=== PATIENT | female | born 1975 | race Caucasian/White ===

== ENCOUNTER 2017-05-01 18:10 | Emergency (ER) | payer MEDICAID ==
[~2017-05-01] VITALS: Ht 160 cm; Wt 90.3 kg
[2017-05-01 18:22] VITALS: BP 175/106
--- NOTE | 2017-05-01 19:42 | NUR ---
patient to er bed 6
--- NOTE | 2017-05-01 19:47 | NUR ---
42Y/F PATIENT PRESENTS TO ED WITH C/O LT. LEG PAIN X 1 DAY . PT STATES PAIN STARTED THIS MORNING, NO TRAUMA OR INJURY; SKIN IS PINK/WARM/DRY; AAOX4 WITH EVEN AND STEADY GAIT; LUNGS CLEAR BL; HR EVEN AND REGULAR; PT DENIES ANY FEVER, CP, SOB, OR COUGH AT THIS TIME; PATIENT STATES PAIN OF 9/10 AT THIS TIME; VSS; PATIENT POSITIONED FOR COMFORT; HOB ELEVATED; BEDRAILS UP X2; BED DOWN. ER MD MADE AWARE OF PT STATUS.
[2017-05-01] MEDS ORDERED: KETOROLAC 30 MG/ML VIAL IM ONE (20:15)
--- NOTE | 2017-05-01 20:30 | NUR ---
Patient being evaluated by DR. BENITEZ at bedside.
[2017-05-01 20:51] LABS: BASOPHILS # (AUTO) 0.3 K/uL (0.00-0.22); BASOPHILS % (AUTO) 2.9 % (0.0-2.0); EOSINOPHILS # (AUTO) 0.2 K/uL (0-0.4); EOSINOPHILS % (AUTO) 2.4 % (0.0-4.0); HEMATOCRIT 38.3 % (36-48); HEMOGLOBIN 13.1 g/dL (12.0-16.0); LYMPHOCYTES # (AUTO) 3.1 K/uL (2.5-16.5); LYMPHOCYTES % (AUTO) 30.9 % (20.5-51.1); MEAN CORPUSCULAR HEMOGLOBIN 30 pg (27-31); MEAN CORPUSCULAR HGB CONC 34 g/dL (33-37); MEAN CORPUSCULAR VOLUME 89 fL (80-94); MONOCYTES # (AUTO) 0.6 K/uL (0.8-1.0); MONOCYTES % (AUTO) 6.1 % (1.7-9.3); NEUTROPHILS # (AUTO) 5.8 K/uL (1.8-7.7); NEUTROPHILS % (AUTO) 57.7 % (42.2-75.2); PLATELET COUNT (AUTO) 161 K/uL (140-450); RED CELL DISTRIBUTION WIDTH 13.3 % (11.6-13.7)
[2017-05-01 21:01] LABS: ANION GAP 11.2 (8-16); CALCIUM 8.6 mg/dL (8.5-10.1); CREATININE 0.7 mg/dL (0.6-1.3); POTASSIUM 4.2 mmol/L (3.5-5.1)
[2017-05-01 21:07] LABS: ALBUMIN 3.3 g/dL (3.4-5.0); TOTAL BILIRUBIN 0.2 mg/dL (0.0-1.0); TOTAL PROTEIN, SERUM 7.2 g/dL (6.4-8.2)
[2017-05-01] MEDS ORDERED: NACL 0.9% 1,000 ML IV ONE (21:50)
--- NOTE | 2017-05-01 22:45 | NUR ---
TAKE PT. TO CT
--- NOTE | 2017-05-01 23:15 | NUR ---
PT. BACK FROM CT.
--- NOTE | 2017-05-01 23:29 | NUR ---
Patient appears to be resting comfortably in bed. Vital Signs within normal limits. Respirations even and unlabored.
--- NOTE | 2017-05-01 23:35 | NUR ---
Marlen araiza in EDM - 05/02/17 at 0031 by MEDRJJ Patient noted to have existing wounds upon arrival to ER. Photos taken of wound and placed in chart. Wound covered with dressing. Physician informed.
[2017-05-02 01:13] VITALS: BP 133/75
--- NOTE | 2017-05-02 01:15 | NUR ---
Patient discharged with v/s stable. Written and verbal after care instructions given and explained. Patient alert, oriented and verbalized understanding of instructions. Ambulatory with steady gait. All questions addressed prior to discharge. ID band removed. Patient advised to follow up with PMD. Rx of CYCLOBENZAPRINE 10MG Q8HR, IBUPROFEN 800MG TID/PRN given. Patient educated on indication of medication including possible reaction and side effects. Opportunity to ask questions provided and answered.
== END 2017-05-02 01:14 | disposition home or self-care (01) ==
LOC: MED 18:10
CPT/HCPCS: 36415; 71275; 80053; 81025; 85025; 85379; 93971; 96360; 96372; 99285; J1885; J7030; Q0092; Q9967

== ENCOUNTER 2017-11-23 19:24 | Emergency (ER) | payer MEDICAID ==
[~2017-11-23] VITALS: Ht 162.6 cm; Wt 96.7 kg
[2017-11-23 19:32] VITALS: BP 147/84
--- NOTE | 2017-11-23 20:00 | NUR ---
PT ITALIAN SPEAKING, BROUGHT TO ED BY DAUGHTER FOR LEFT SIDED PRESSURE HEADACHE AND CHEST PAIN EARLIER IN THE DAY. PT DENIES CHEST PAIN AT THIS TIME. PT DENIES FALLES OR HEAD TRAUMA. PT STATES HAVING DIZZINESS, AND BLURRED VISION WITH ONSET OF HEADACHE. CARDENAS PAIN 04/12. A&OX4. ABLE TO COMUNICATED NEEDS CLEARLY. 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 SPEECH NORMAL AND CLEAR. MD AWARE. CONTINUE TO MONITOR.
[2017-11-23] MEDS ORDERED: KETOROLAC 60 MG/2 ML VIAL IM ONE (20:45)
[2017-11-23] MEDS ORDERED: LORazepam 2 MG/ML VIAL IM ONE (20:45)
[2017-11-23 21:30] VITALS: BP 130/70
--- NOTE | 2017-11-23 21:33 | NUR ---
Patient discharged with v/s stable. Written and verbal after care instructions given and explained. Pt waiting in lobby awaiting daughter p/u.Patient alert, oriented and verbalized understanding of instructions. Ambulatory with steady gait. All questions addressed prior to discharge. ID band removed. Patient advised to follow up with PMD. Rx of MOTRIN given. Patient educated on indication of medication including possible reaction and side effects. Opportunity to ask questions provided and answered.
== END 2017-11-23 21:33 | disposition home or self-care (01) ==
LOC: MED 19:24
DX: R51 Headache (principal); I10 Essential (primary) hypertension; M79.602 Pain in left arm; M79.605 Pain in left leg; J45.909 Unspecified asthma, uncomplicated
CPT/HCPCS: 81002; 81025; 96372; 99284; J1885; J2060

== ENCOUNTER 2018-08-02 18:48 | Emergency (ER) | payer MEDICAID ==
[~2018-08-02] VITALS: Ht 160 cm; Wt 95.3 kg
[2018-08-02 18:57] VITALS: BP 146/90
[2018-08-02] MEDS ORDERED: IBUPROFEN 600 MG TAB PO ONE (20:45)
[2018-08-02 21:31] VITALS: BP 132/78
== END 2018-08-02 21:31 | disposition home or self-care (01) ==
LOC: MED 18:48
DX: S83.91XA Sprain of unspecified site of right knee, initial encounter (principal); J45.909 Unspecified asthma, uncomplicated; I10 Essential (primary) hypertension; X58.XXXA Exposure to other specified factors, initial encounter; Y93.89 Activity, other specified; Y92.89 Other specified places as the place of occurrence of the external cause; Y99.8 Other external cause status
CPT/HCPCS: 73562; 99284; Q0092

== ENCOUNTER 2019-02-12 15:41 | Emergency (ER) | payer MEDICAID ==
[~2019-02-12] VITALS: Ht 160 cm; Wt 90.7 kg
[2019-02-12 15:46] VITALS: BP 142/78
--- NOTE | 2019-02-12 16:06 | NUR ---
PT AMBULATED TO BED 08.
--- NOTE | 2019-02-12 16:12 | NUR ---
PT AT RADIALOGY AT THIS TIME.
--- NOTE | 2019-02-12 16:21 | NUR ---
PT BIB SELF FOR RT KNEE PAIN. PT REPORTS BONE ON BONE PAIN AT 9/10. PT REPORTS HAVING CHRONIC KNEE PAIN X2 YEARS, BUT RECENTLY HAS BECOME UNBEARABLE AND CURRENT PAIN MEDICATION IS NOT HELPING. SWELLING PRESENT ON MEDIAL RT KNEE, NO REDNESS, NO DEFORMITY, +CMS. VSS. ER TO SEE PT. MEDHX:HTN
--- NOTE | 2019-02-12 17:23 | NUR ---
PT RESTING IN BED. PT REPORTS KNEE PAIN AT 9/10. VSS. ER MADE AWARE
[2019-02-12] MEDS ORDERED: KETOROLAC 60 MG/2 ML VIAL IM ONE (17:40)
--- NOTE | 2019-02-12 20:10 | NUR ---
Patient discharged with v/s stable. Pateint acting appropriatly, patient states pain 2/10 at this time; patient states she is ready to go home. Written and verbal after care instructions given and explained. Patient alert, oriented and verbalized understanding of instructions. Ambulatory with steady gait. All questions addressed prior to discharge. ID band removed. Patient advised to follow up with PMD. Rx of given. Patient educated on indication of medication including possible reaction and side effects. Opportunity to ask questions provided and answered.
[2019-02-12 20:18] VITALS: BP 140/81
== END 2019-02-12 20:10 | disposition home or self-care (01) ==
LOC: MED 15:41
DX: M17.11 Unilateral primary osteoarthritis, right knee (principal); J45.909 Unspecified asthma, uncomplicated; I10 Essential (primary) hypertension
CPT/HCPCS: 73562; 96372; 99283; J1885; 29505

== ENCOUNTER 2019-07-15 22:25 | Emergency (ER) | payer SELFPAY ==
[~2019-07-15] VITALS: Ht 160 cm; Wt 93.0 kg
[2019-07-15 22:44] VITALS: BP 163/91
--- NOTE | 2019-07-15 22:50 | NUR ---
PT AMBULATED SELF TO BED #11
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
--- NOTE | 2019-07-16 01:01 | NUR ---
PT LAYING IN BED, RR EVEN AND UNLABORED. REPORTS TOLERABLE 8/10 POSTERIOR NECK, BL SHOULDER AND LOWER BACK PAIN. VSS. ALL NEEDS MET.
[2019-07-16 02:36] VITALS: BP 131/69
--- NOTE | 2019-07-16 02:36 | NUR ---
PT DISCHARGED WITH PAPERWORK. NO RX PROVIDED. EDUCATED PT REGARDING D/C DIAGNOSIS AND INSTRUCTIONS. PT VERBALIZED UNDERSTANDING OF TEACHING. TOLD PT TO FOLLOW UP WITH PCP AND WHEN TO RETURN TO ED. PT VSS. ALL QUESTIONS ANSWERED.
== END 2019-07-16 02:36 | disposition home or self-care (01) ==
LOC: MED 22:25
DX: M54.5 Low back pain (principal); M54.2 Cervicalgia; M25.511 Pain in right shoulder; M25.512 Pain in left shoulder; J45.909 Unspecified asthma, uncomplicated; I10 Essential (primary) hypertension; V89.2XXA Person injured in unspecified motor-vehicle accident, traffic, initial encounter; Y93.89 Activity, other specified; Y92.89 Other specified places as the place of occurrence of the external cause; Y99.8 Other external cause status
CPT/HCPCS: 99283

== ENCOUNTER 2019-09-11 03:43 | Emergency (ER) | payer MEDICAID ==
[~2019-09-11] VITALS: Ht 160 cm; Wt 90.7 kg
[2019-09-11 03:45] VITALS: BP 135/77
--- NOTE | 2019-09-11 03:45 | NUR ---
TO BED # 12 AMBULATORY
--- NOTE | 2019-09-11 04:04 | NUR ---
44 Y/O FEMALE PRESENTS TO ED, C/O RIGHT GREAT TOE PAIN 07/13. PT HAS INGROWN TOENAIL THAT STARTED GROWING 1 WEEK AGO; STATES GOING TO PEDICURE AND FELT PAIN. PT STATES PAIN RADIATES FROM TOE TO KNEE. TOOK IBUPROFEN 800MG YESTERDAY; INEFFECTIVE. NO BLEEDING OR DISCHARGE ON TOE. PT ABLE TO AMBULATE WITH SLOW STEADY GAIT BUT WITH PAIN. PT STABLE. ERMD AWARE. WILL CONTINUE TO MONITOR.
[2019-09-11] MEDS ORDERED: KETOROLAC 30 MG/ML VIAL IM ONE (04:20)
[2019-09-11 04:35] VITALS: BP 135/77
--- NOTE | 2019-09-11 04:35 | NUR ---
PT DISCHARGED WITH PAPERWORK. RX TIMOTHY EDUARDO. EDUCATED PT REGARDING MEDICATIONS AND S/E. EDUCATED PT REGARDING D/C DIAGNOSIS AND INSTRUCTIONS. PT VERBALIZED UNDERSTANDING OF TEACHING. TOLD PT TO FOLLOW UP WITH PCP AND WHEN TO RETURN TO ED. PT VSS. ALL QUESTIONS ANSWERED.
== END 2019-09-11 04:35 | disposition home or self-care (01) ==
LOC: MED 03:43
DX: L60.0 Ingrowing nail (principal); J45.909 Unspecified asthma, uncomplicated; I10 Essential (primary) hypertension
CPT/HCPCS: 96372; 99283; J1885

== ENCOUNTER 2019-10-29 00:07 | Emergency (ER) | payer MEDICAID ==
[~2019-10-29] VITALS: Ht 160 cm; Wt 93.9 kg
[2019-10-29 00:07] VITALS: BP 140/88
--- NOTE | 2019-10-29 00:10 | NUR ---
TO LOBBY A/W BED AMBULATORY
--- NOTE | 2019-10-29 00:35 | NUR ---
PT AMBULATED TO BED 4.
--- NOTE | 2019-10-29 00:35 | NUR ---
44 Y/O FEMALE BIB SON C/O COUGH FOR 3 WEEKS, H/A, EYE PAIN, ITCHINESS STARTED TODAY. NOTED REDNESS/DRYNESS AND PATIENT IS UNABLE TO OPEN RIGHT; DENIES N/V/D. COUGH +PHLEGM; PATIENT STATES, " IT HURTS TO BREATHE". LUNG SOUNDS CLEAR/DIMINISHED ANTERIOR/POSTERIOR BILATERALLY; 98% ON RA. BOWEL SOUNDS ON ALL FOUR QUADRANTS. PAIN IS AM 8/10 GENERALIZED PAIN. ERMD MADE AWARE OF STATUS. SIDE RAILSX1. PMH:ASTHMA; HTN RX:DENIES NKDA
--- NOTE | 2019-10-29 01:33 | NUR ---
DR. FORTE EVALUATING PATIENT AT BEDSIDE.
[2019-10-29 01:45] VITALS: BP 135/78
--- NOTE | 2019-10-29 01:45 | NUR ---
Patient discharged with v/s stable. Written and verbal after care instructions given and explained. Patient alert, oriented and verbalized understanding of instructions. Ambulatory with steady gait. All questions addressed prior to discharge. ID band removed. Patient advised to follow up with PMD. Rx of TESSALON PERLES; AUGMENTIN; SULFACETAMIDE SODIUM OPTHALAMIC DROPS. given. Patient educated on indication of medication including possible reaction and side effects. Opportunity to ask questions provided and answered. DISCHARGED BY DR. FORTE.
== END 2019-10-29 01:45 | disposition home or self-care (01) ==
LOC: MED 00:07
DX: J20.9 Acute bronchitis, unspecified (principal); H10.9 Unspecified conjunctivitis; J45.909 Unspecified asthma, uncomplicated; I10 Essential (primary) hypertension; Z98.51 Tubal ligation status
CPT/HCPCS: 99283

== ENCOUNTER 2020-06-23 20:08 | Emergency (ER) | payer MEDICAID ==
[~2020-06-23] VITALS: Ht 160 cm; Wt 100.2 kg
[2020-06-23 20:12] VITALS: BP 179/100
--- NOTE | 2020-06-23 20:23 | NUR ---
PT AMBULATED TO ER BED 04
--- NOTE | 2020-06-23 20:38 | NUR ---
PT C/O RIGHT EYE PAIN AND PRESSURE X 3 WEEKS ON AND OFF HOWEVER IN THE LAST WEEK IT HAS BEEN CONSTANT. SHE ALSO HAS PAIN IN THE BACK OF HER NECK WHICH RADIATES DOWN HER RIGHT ARM. THE PAIN IS THROBBING IN NECK AND ARM. 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 DOES C/O OF SEEING BLACKS SPOTS ON AND OFF IN HER VISION TO RIGHT EYE. NO N/V, NO SOB, NO DIZZINESS. BED IN LOWEST POSITION AND SIDERAIL UP X 1. NKA ASTHMA, HTN
[2020-06-23] MEDS ORDERED: KETOROLAC 60 MG/2 ML VIAL IM ONE (20:40)
[2020-06-23 21:21] VITALS: BP 158/89
--- NOTE | 2020-06-23 21:22 | NUR ---
Patient discharged with v/s stable. Written and verbal after care instructions given and explained. Patient alert, oriented and verbalized understanding of instructions. Ambulatory with steady gait. All questions addressed prior to discharge. ID band removed. Patient advised to follow up with PMD. Rx of MOTRIN AND NORCO given. Patient educated on indication of medication including possible reaction and side effects. Opportunity to ask questions provided and answered.
== END 2020-06-23 21:22 | disposition home or self-care (01) ==
LOC: MED 20:08
DX: R51 Headache (principal); H57.11 Ocular pain, right eye; J45.909 Unspecified asthma, uncomplicated; I10 Essential (primary) hypertension; Z98.890 Other specified postprocedural states
CPT/HCPCS: 81002; 81025; 96372; 99283; J1885

== ENCOUNTER 2021-03-29 22:42 | Emergency (ER) | payer MEDICAID ==
[~2021-03-29] VITALS: Ht 152.4 cm; Wt 101.2 kg
[2021-03-29 22:46] VITALS: BP 155/87
--- NOTE | 2021-03-29 23:00 | NUR ---
TO BED 5 FROM TRIAGE
--- NOTE | 2021-03-29 23:00 | NUR ---
PT. IS A 46 Y/O WOMAN WHO CAME IN WITH C/O OF RIGHT LEG PAIN AND LEFT ARM/SHOULDER PAIN THAT STARTED LAST WEEK. SHE STATES THAT IT IS A 9/10 ON THE PAIN SCALE. SKIN IS PINK/WARM/DRY; AAOX4 WITH EVEN AND STEADY GAIT; HR EVEN AND REGULAR; PT DENIES ANY FEVER, CP, SOB, OR COUGH AT THIS TIME; VSS; PATIENT POSITIONED FOR COMFORT; HOB ELEVATED; BEDRAILS UP X2; BED DOWN. ER MD MADE AWARE OF PT STATUS. PMH: HYPERTENSION ALLERGIES: NKA
--- NOTE | 2021-03-29 23:31 | NUR ---
Patient being evaluated by physician at bedside.
[2021-03-30] MEDS: HYDROcodone/APAP 5/325 MG 1 TAB TAB PO ONE (00:13)
[2021-03-30] MEDS ORDERED: ACET-9525 PO (01:24)
[2021-03-30 01:50] VITALS: BP 155/87
--- NOTE | 2021-03-30 01:50 | NUR ---
Patient discharged with v/s stable. Written and verbal after care instructions given and explained. Patient alert, oriented and verbalized understanding of instructions. Ambulatory with steady gait. All questions addressed prior to discharge. ID band removed. Patient advised to follow up with PMD. Rx of HYDROCODONE/ACETAMINOPHEN given. Patient educated on indication of medication including possible reaction and side effects. Opportunity to ask questions provided and answered.
== END 2021-03-30 01:50 | disposition home or self-care (01) ==
LOC: MED 22:42
DX: M17.12 Unilateral primary osteoarthritis, left knee (principal); M71.22 Synovial cyst of popliteal space [Baker], left knee; J45.909 Unspecified asthma, uncomplicated; I10 Essential (primary) hypertension; Z79.899 Other long term (current) drug therapy
CPT/HCPCS: 73562; 81002; 81025; 93971; 99284

== ENCOUNTER 2021-07-28 01:30 | Emergency (ER) | payer MEDICAID ==
[~2021-07-28] VITALS: Ht 160 cm; Wt 92.1 kg
[~2021-07-28 01:30] MED LIST: ACET-9525 PO
[2021-07-28 01:51] VITALS: BP 136/87
--- NOTE | 2021-07-28 01:51 | NUR ---
TO BED AMBULATORY
[2021-07-28] MEDS ORDERED: ACETAMINOPHEN 325 MG TAB PO ONE (02:25)
[2021-07-28] MEDS ORDERED: KETOROLAC 15 MG/ML VIAL IM ONE (02:25)
--- NOTE | 2021-07-28 03:18 | NUR ---
XRAY AT BEDSIDE
[2021-07-28] MEDS ORDERED: IBUP-2213 PO (04:14)
[2021-07-28 04:38] VITALS: BP 126/76
== END 2021-07-28 04:35 | disposition home or self-care (01) ==
LOC: MED 01:30
DX: S30.0XXA Contusion of lower back and pelvis, initial encounter (principal); V89.2XXA Person injured in unspecified motor-vehicle accident, traffic, initial encounter; Y93.89 Activity, other specified; Y92.89 Other specified places as the place of occurrence of the external cause; Y99.8 Other external cause status
CPT/HCPCS: 72170; 81002; 81025; 96372; 99283; J1885; Q0092

== ENCOUNTER 2021-09-06 20:55 | Emergency (ER) | payer MEDICAID, OTHER ==
[~2021-09-06] VITALS: Ht 160 cm; Wt 93.0 kg
[~2021-09-06 20:55] MED LIST changes: +IBUP-2213 PO
[2021-09-06 21:19] VITALS: BP 128/78
--- NOTE | 2021-09-06 21:28 | NUR ---
PATIENT AMBULATED TO THE BATHROOM FOR URINE COLLECTION, AND WILL HEAD TO THE LOBBY.
[2021-09-06 21:41] LABS: BASOPHILS % (AUTO) 0.4 % (0.0-2.0); EOSINOPHILS # (AUTO) 0.3 K/uL (0-0.4); EOSINOPHILS % (AUTO) 3.6 % (0.0-4.0); HEMATOCRIT 43.8 % (36-48); HEMOGLOBIN 14.9 g/dL (12.0-16.0); LYMPHOCYTES # (AUTO) 1.1 K/uL (2.5-16.5); MEAN CORPUSCULAR HEMOGLOBIN 30 pg (27-31); MEAN CORPUSCULAR HGB CONC 34 g/dL (33-37); MEAN CORPUSCULAR VOLUME 89.3 fL (80-94); MONOCYTES # (AUTO) 0.4 K/uL (0.8-1.0); MONOCYTES % (AUTO) 4.1 % (1.7-9.3); NEUTROPHILS % (AUTO) 79.9 % (42.2-75.2); PLATELET COUNT (AUTO) 200 K/uL (140-450); RED CELL DISTRIBUTION WIDTH 13.7 % (11.6-13.7); WHITE BLOOD COUNT (AUTO) 8.7 K/uL (4.8-10.8)
[2021-09-06 21:44] LABS: APPEARANCE,URINE CLEAR (CLEAR); BILIRUBIN,URINE NEGATIVE (NEGATIVE); BLOOD, URINE 1+ (NEGATIVE); COLOR,URINE YELLOW (YELLOW); LEUKOCYTE ESTERASE ,URINE NEGATIVE (NEGATIVE); NITRITE, URINE NEGATIVE (NEGATIVE); UGLUCOSE NEGATIVE (NEGATIVE)
[2021-09-06 22:00] LABS: WBC,URINE NONE SEEN /HPF (0-5); YEAST,URINE Rare /HPF (None Seen)
[2021-09-06 22:01] LABS: ALBUMIN 3.8 g/dL (3.4-5.0); ANION GAP 14.8 (8-16); CARBON DIOXIDE 26.4 mmol/L (21-32); CREATININE 0.6 mg/dL (0.6-1.3); POTASSIUM 4.2 mmol/L (3.5-5.1); TOTAL BILIRUBIN 0.5 mg/dL (0.0-1.0)
--- NOTE | 2021-09-06 22:43 | NUR ---
PT AMB TO BED 8
[2021-09-06] MEDS ORDERED: DICYCLOMINE HCL LIQUID 20 MG, ALUMINUM HYD/MAG/SIMETHICONE 30 ML, LIDOCAINE VISCOUS 2% ... PO ONE ×3 (23:15)
[2021-09-06] MEDS ORDERED: ONDANSETRON 4 MG ODT PO ONE (23:15)
--- NOTE | 2021-09-06 23:16 | NUR ---
ERMD EVALUATING PT AT BEDSIDE.
[2021-09-06] MEDS ORDERED: DICYCLOMINE HCL LIQUID 10 MG/5 ML UDC ONE ×2 (23:38→23:41)
[2021-09-06] MEDS ORDERED: ALUMINUM HYD/MAG/SIMETHICONE 30 ML UDC ONE ×2 (23:38→23:41)
[2021-09-07] MEDS ORDERED: ONDA-188 SL (00:34)
[2021-09-07] MEDS ORDERED: IMO2 PO (00:34)
[2021-09-07 00:50] VITALS: BP 128/78
--- NOTE | 2021-09-07 00:50 | NUR ---
Patient discharged with v/s stable. Written and verbal after care instructions given and explained. Patient alert, oriented and verbalized understanding of instructions. Ambulatory with steady gait. All questions addressed prior to discharge. ID band removed. Patient advised to follow up with PMD. Rx of LOPERAMIDE,ONDANSETRON given. Patient educated on indication of medication including possible reaction and side effects. Opportunity to ask questions provided and answered.
--- NOTE | 2021-09-07 01:11 | NUR ---
The patient's care was reviewed and supervised by MIKE GORDON RN.
== END 2021-09-07 00:50 | disposition home or self-care (01) ==
LOC: MED 20:55
DX: K52.9 Noninfective gastroenteritis and colitis, unspecified (principal); R19.7 Diarrhea, unspecified; R11.2 Nausea with vomiting, unspecified; J45.909 Unspecified asthma, uncomplicated; E11.9 Type 2 diabetes mellitus without complications; I10 Essential (primary) hypertension; Z79.899 Other long term (current) drug therapy
CPT/HCPCS: 36415; 80053; 81001; 81025; 83690; 85025; 99283; Q0162

== ENCOUNTER 2021-12-12 22:26 | Emergency (ER) | payer MEDICAID ==
[~2021-12-12] VITALS: Ht 160 cm; Wt 90.7 kg
[~2021-12-12 22:26] MED LIST changes: +IMO2 PO; +ONDA-188 SL
[2021-12-12 22:37] VITALS: BP 127/79
--- NOTE | 2021-12-12 23:05 | NUR ---
Dr. Simmons examining patient.
[2021-12-12] MEDS ORDERED: KETOROLAC 60 MG/2 ML VIAL IM ONE (23:10)
[2021-12-12] MEDS ORDERED: ACETAMINOPHEN 325 MG TAB PO ONE (23:10)
--- NOTE | 2021-12-12 23:18 | NUR ---
assumed patient care, here for shoulder pain. With xray imaging ordered, pt instructed to save urine specimen for uhcg. urine negative, wheeled to radiology by Andela.
--- NOTE | 2021-12-12 23:50 | NUR ---
US tech at the bedside for upper extremity doppler.
[2021-12-13] MEDS ORDERED: METH4TAB1 PO (00:43)
[2021-12-13] MEDS ORDERED: NAPR-54 PO (00:43)
[2021-12-13] MEDS ORDERED: FAMO-92 PO (00:43)
[2021-12-13 00:53] VITALS: BP 125/78
--- NOTE | 2021-12-13 00:53 | NUR ---
Patient discharged with v/s stable. Written and verbal after care instructions given and explained. Patient alert, oriented and verbalized understanding of instructions. Ambulatory with steady gait. All questions addressed prior to discharge. ID band removed. Patient advised to follow up with PMD. Rx of PEPCID, MEDROL, NAPROSYN given. Opportunity to ask questions provided and answered.
== END 2021-12-13 00:53 | disposition home or self-care (01) ==
LOC: MED 22:26
DX: S16.1XXA Strain of muscle, fascia and tendon at neck level, initial encounter (principal); M79.10 Myalgia, unspecified site; J45.909 Unspecified asthma, uncomplicated; I10 Essential (primary) hypertension; E11.9 Type 2 diabetes mellitus without complications; Z79.899 Other long term (current) drug therapy; X58.XXXA Exposure to other specified factors, initial encounter; Y93.89 Activity, other specified; Y92.89 Other specified places as the place of occurrence of the external cause; Y99.8 Other external cause status
CPT/HCPCS: 72040; 81025; 93971; 96372; 99284; J1885; Q0092

== ENCOUNTER 2022-05-13 02:05 | Emergency (ER) | payer MEDICAID ==
[~2022-05-13] VITALS: Ht 160 cm; Wt 96.2 kg
[~2022-05-13 02:05] MED LIST changes: +FAMO-92 PO; +METH4TAB1 PO; +NAPR-54 PO
[2022-05-13 02:20] VITALS: BP 153/87
== END 2022-05-13 04:40 | disposition left against medical advice (07) ==
LOC: MED 02:05
DX: M79.604 Pain in right leg (principal); Z53.21 Procedure and treatment not carried out due to patient leaving prior to being seen by health care provider

== ENCOUNTER 2023-03-12 14:46 | Emergency (ER) | payer MEDICAID ==
[~2023-03-12] VITALS: Ht 160 cm; Wt 98.9 kg
[2023-03-12 14:56] VITALS: BP 167/95
--- NOTE | 2023-03-12 15:40 | NUR ---
MD CLINE AT BEDSIDE FOR EVALUATION
[2023-03-12] MEDS ORDERED: KETOROLAC 60 MG/2 ML VIAL IM ONE (15:45)
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
[2023-03-12] MEDS ORDERED: LID5T TP (15:49)
[2023-03-12] MEDS ORDERED: CYCL-711 PO (15:49)
[2023-03-12] MEDS ORDERED: IBUP-2213 PO (15:49)
--- NOTE | 2023-03-12 16:12 | NUR ---
xray at bedside
[2023-03-12 16:49] VITALS: BP 140/88
--- NOTE | 2023-03-12 16:49 | NUR ---
Patient discharged with v/s stable. Written and verbal after care instructions FOR MUSCLE SPRAIN given and explained. Patient alert, oriented and verbalized understanding of instructions. Ambulatory with steady gait. All questions addressed prior to discharge. ID band removed. Patient advised to follow up with PMD. Rx of FLEXERIL, IBUPROFEN AND LIDOCAINE HYD given. Opportunity to ask questions provided and answered.
--- NOTE | 2023-03-12 16:55 | NUR ---
The patient's care was reviewed and supervised by Dianna Key RN.
== END 2023-03-12 16:49 | disposition home or self-care (01) ==
LOC: MED 14:46
DX: S39.012A Strain of muscle, fascia and tendon of lower back, initial encounter (principal); R51.9 Headache, unspecified; J45.909 Unspecified asthma, uncomplicated; I10 Essential (primary) hypertension; E11.9 Type 2 diabetes mellitus without complications; V49.88XA Car occupant (driver) (passenger) injured in other specified transport accidents, initial encounter; Y93.89 Activity, other specified; Y92.89 Other specified places as the place of occurrence of the external cause; Y99.8 Other external cause status
CPT/HCPCS: 71045; 81025; 96372; 99283; J1885; Q0092

== ENCOUNTER 2023-06-04 12:52 | Emergency (ER) | payer BC, MEDICAID, OTHER ==
[~2023-06-04] VITALS: Ht 160 cm; Wt 95.3 kg
[~2023-06-04 12:52] MED LIST changes: +CYCL-711 PO; +LID5T TP
[2023-06-04 12:54] VITALS: BP 161/91; PULSE 77; RESP 20; TEMP 98; O2SAT 99
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
[2023-06-04] MEDS ORDERED: KETOROLAC 30 MG/ML VIAL IM ONE (13:45)
[2023-06-04] MEDS ORDERED: HYDROcodone/APAP 7.5/325 MG 1 TAB PO ONE (13:45)
[2023-06-04] MEDS ORDERED: ACET-8905 PO (15:06)
[2023-06-04] MEDS ORDERED: LID5T TP (15:06)
[2023-06-04 15:21] VITALS: BP 157/88; PULSE 66; RESP 18; O2SAT 98
--- NOTE | 2023-06-04 15:21 | NUR ---
Patient discharged with v/s stable. Written and verbal after care instructions given. Patient alert, oriented and verbalized understanding of instructions. Ambulatory with to car. All questions addressed prior to discharge. ID band removed. Patient advised to follow up with PMD. Rx of lidocaine and Hydrocodone-Acetaminophen given. Opportunity to ask questions provided and answered.
--- NOTE | 2023-06-04 15:22 | NUR ---
The patient's care was reviewed and supervised by Na Carter, RN, RN.
== END 2023-06-04 15:21 | disposition home or self-care (01) ==
LOC: MED 12:52
DX: M54.50 Low back pain, unspecified (principal); M54.2 Cervicalgia; E11.9 Type 2 diabetes mellitus without complications; Z79.4 Long term (current) use of insulin; Z79.899 Other long term (current) drug therapy
CPT/HCPCS: 81002; 81025; 96372; 99283; J1885

== ENCOUNTER 2023-09-02 09:58 | Emergency (ER) | payer BC, MEDICAID ==
[~2023-09-02] VITALS: Ht 160 cm; Wt 99.8 kg
[~2023-09-02 09:58] MED LIST changes: +ACET-8905 PO
[2023-09-02 10:05] VITALS: BP 130/66; PULSE 83; RESP 18; TEMP 97.3; O2SAT 98
[2023-09-02] MEDS ORDERED: LORA10TA19 PO (10:57)
[2023-09-02] MEDS ORDERED: PROM118S5 PO (10:57)
[2023-09-02 11:10] VITALS: BP 122/65; PULSE 83; RESP 18; TEMP 97.3; O2SAT 98
== END 2023-09-02 11:11 | disposition home or self-care (01) ==
LOC: MED 09:58
DX: R05.3 Chronic cough (principal); E11.9 Type 2 diabetes mellitus without complications; Z79.4 Long term (current) use of insulin; Z79.899 Other long term (current) drug therapy
CPT/HCPCS: 71045; 99283

== ENCOUNTER 2024-01-09 18:47 | Emergency (ER) | payer BC ==
[~2024-01-09] VITALS: Ht 160 cm; Wt 99.8 kg
[~2024-01-09 18:47] MED LIST changes: +LORA10TA19 PO; +PROM118S5 PO
[2024-01-09 19:53] VITALS: BP 155/86; PULSE 80; RESP 16; TEMP 97.3; O2SAT 98
[2024-01-09] MEDS ORDERED: DOXY-745 PO (22:55)
[2024-01-09] MEDS ORDERED: MUPI2CRE22 TP (22:55)
[2024-01-09 23:13] VITALS: BP 155/86; PULSE 80; RESP 16; TEMP 97.3; O2SAT 98
== END 2024-01-09 23:12 | disposition home or self-care (01) ==
LOC: MED 18:47
DX: L02.811 Cutaneous abscess of head [any part, except face] (principal); J45.909 Unspecified asthma, uncomplicated; E11.9 Type 2 diabetes mellitus without complications; Z79.899 Other long term (current) drug therapy
CPT/HCPCS: 99283

== ENCOUNTER 2024-02-21 07:44 | Emergency (ER) | payer BC, MEDICAID ==
[~2024-02-21] VITALS: Ht 160 cm; Wt 98.4 kg
[~2024-02-21 07:44] MED LIST changes: +DOXY-745 PO; +MUPI2CRE22 TP; +NAPR-337 PO; -NAPR-54 PO
[2024-02-21 08:06] VITALS: BP 163/90; PULSE 73; RESP 18; TEMP 97.6; O2SAT 97
[2024-02-21 08:51] LABS: BASOPHILS # (AUTO) 0.1 K/uL (0.00-0.22); BASOPHILS % (AUTO) 1.1 % (0.0-2.0); EOSINOPHILS # (AUTO) 0.2 K/uL (0-0.4); EOSINOPHILS % (AUTO) 2.1 % (0.0-4.0); HEMATOCRIT 42.7 % (36-48); HEMOGLOBIN 14.8 g/dL (12.0-16.0); LYMPHOCYTES # (AUTO) 2.1 K/uL (2.5-16.5); LYMPHOCYTES % (AUTO) 28.2 % (20.5-51.1); MEAN CORPUSCULAR HEMOGLOBIN 31 pg (27-31); MEAN CORPUSCULAR HGB CONC 35 g/dL (33-37); MEAN CORPUSCULAR VOLUME 88.2 fL (80-94); MONOCYTES # (AUTO) 0.4 K/uL (0.8-1.0); MONOCYTES % (AUTO) 5.9 % (1.7-9.3); NEUTROPHILS # (AUTO) 4.7 K/uL (1.8-7.7); NEUTROPHILS % (AUTO) 62.7 % (42.2-75.2); PLATELET COUNT (AUTO) 192 K/uL (140-450); RED BLOOD CELL COUNT(AUTO) 4.84 MIL/uL (4.20-5.40); RED CELL DISTRIBUTION WIDTH 13.2 % (11.6-13.7); WHITE BLOOD COUNT (AUTO) 7.6 K/uL (4.8-10.8)
[2024-02-21 09:04] LABS: ANION GAP 12.8 (8-16); CALCIUM 8.9 mg/dL (8.5-10.1); CARBON DIOXIDE 26.5 mmol/L (21-32); CREATININE 0.6 mg/dL (0.6-1.3); POTASSIUM 4.3 mmol/L (3.5-5.1)
[2024-02-21] MEDS ORDERED: GLIP5TER PO (09:22)
[2024-02-21] MEDS ORDERED: SEMA0.258 SQ (09:22)
[2024-02-21 09:45] VITALS: BP 163/90; PULSE 73; RESP 18; TEMP 97.6; O2SAT 97
[2024-02-21 10:14] LABS: APPEARANCE,URINE CLEAR (CLEAR); BILIRUBIN,URINE NEGATIVE (NEGATIVE); BLOOD, URINE TRACE-I (NEGATIVE); COLOR,URINE YELLOW (YELLOW); LEUKOCYTE ESTERASE ,URINE NEGATIVE (NEGATIVE); NITRITE, URINE NEGATIVE (NEGATIVE); PROTEIN,URINE NEGATIVE (NEGATIVE); UGLUCOSE NEGATIVE (NEGATIVE); UROBILINOGEN,URINE 0.2 EU/dL (0.2 - 1)
== END 2024-02-21 09:45 | disposition home or self-care (01) ==
LOC: MED 07:44
DX: E11.65 Type 2 diabetes mellitus with hyperglycemia (principal); J45.909 Unspecified asthma, uncomplicated; Z76.0 Encounter for issue of repeat prescription; Z79.4 Long term (current) use of insulin; Z79.899 Other long term (current) drug therapy
CPT/HCPCS: 36415; 80048; 81003; 82948; 85025; 99283